=== PATIENT | male | born 1945 | race Hispanic/Latino ===

== ENCOUNTER 2024-04-06 08:05 | Emergency (ER) | payer MEDICARE ==
[~2024-04-06] VITALS: Ht 162.6 cm; Wt 61.2 kg
[2024-04-06 08:13] VITALS: BP 174/82; PULSE 63; RESP 16; TEMP 98; O2SAT 100
--- NOTE | 2024-04-06 09:19 | HMCIMG ---
CHEST 1VW REASON: fall COMPARISON: None FINDINGS: Single view of the chest was obtained. Lungs are clear. Heart size is normal. There is no pulmonary vascular congestion. Mediastinum and bony thorax appear unremarkable. IMPRESSION: 1. Normal single view chest x-ray.
--- NOTE | 2024-04-06 10:02 | ERN ---
ED Note History of Present Illness Stated Complaint: SHOULDER PAIN, RT NECK PAIN, POST FALL Chief Complaint: Mechanical Fall Time Seen by MD: 08:13 Dictation: 78-year-old male presents to the ED for evaluation post fall onset 1 hour ago. Patient reports right neck pain, bilateral shoulder pain, right arm pain, but denies any LOC, head injury or blood thinners. Patient [place] when he accidentally stepped in the hole causing him to fall forward. Allergies: Coded Allergies: No Known Drug Allergies (Unverified Allergy, Unknown, 04/06/24) Home Meds Active Scripts Cyclobenzaprine HCl (Cyclobenzaprine HCl) 5 Mg Tablet, 5 MG PO BID for 5 Days, #10 TAB Prov:ASHUTOSH ANDREWS MD 04/06/24 Past Medical History Past Medical History: Diabetes-Type II, Hypertension Surgical History: None Review of System Dictation Constitutional: Negative for fever,chills, and weight loss Eyes: Negative for injury, pain,redness, and discharge ENT: Negative for injury,pain or swelling Cardiovascular: Negative for chest pain, palpitations, and edema Respiratory: Negative for shortness of breath, cough, and wheezing, Abdomen/GI: Negative for abdominal pain, nausea, vomiting, diarrhea, and constipation Back: Negative for injury and pain : Negative for injury, bleeding and discharge MS/Extremity: Positive for neck pain, shoulder pain, arm pain Negative for injury and deformity Skin: Negative for rash, and discoloration Neuro: Negative for headache, weakness, numbness, tingling, and seizure Psych: Negative for suicide ideation, homicidal ideation, and hallucinations Initial Vital Sign VS Vital Signs Date Time Temp Pulse Resp B/P (MAP) Pulse Ox O2 Delivery O2 Flow Rate FiO2 04/06/24 08:07 98.1 63 16 174/82 100 Room Air 0 04/06/24 08:13 21 Physical Exam Dictation General: awake, alert, NAD Head/Face: Normocephalic, atraumatic Eyes: PERRL, EOMI, vision at baseline ENT: oral cavity clear, TMs clear, no signs of infection Neck: Trachea midline, supple, no nuchal rigidity Cardiovascular: RRR, normal S1/S2, No MRGs, no JVD Respiratory: CTAB, no respiratory distress, No rales or wheezes Abdomen: Soft, non-tender, non-distended, normal bowel sounds, no guarding or rebound. Skin: Warm, dry, normal turgor, no rash MS/Extremity: Pulses equal, no cyanosis, neurovascular intact, FROM Neuro: COAx4, GCS 15, strength 5/5, CN 2-12 intact, normal cerebellar exam, normal gait, Psych: Normal behavior, mood, and affect normal Results (Laboratory/Radiology) X-RAY Comment: REASON: fall ORDERING PHYSICIAN: ASHUTOSH ANDREWS MD PROCEDURE: CXR1VW - CHEST 1VW CHEST 1VW REASON: fall COMPARISON: None FINDINGS: Single view of the chest was obtained. Lungs are clear. Heart size is normal. There is no pulmonary vascular congestion. Mediastinum and bony thorax appear unremarkable. IMPRESSION: 1. Normal single view chest x-ray. DICTATED BY: PATRICK TARANGO MD DATE: 04/06/[address] Scan Comment: REASON: fall ORDERING PHYSICIAN: ASHUTOSH ANDREWS MD PROCEDURE: C SPIN WO - CT CERVICAL SPINE W/O CONTRAST CT CERVICAL SPINE W/O CONTRAST REASON: fall COMPARISON: None TECHNIQUE: Images are obtained from skull base to the upper thoracic spine in the axial plane. Sagittal and coronal reconstruction images were then performed. FINDINGS: There are normal appearing vertebral bodies. Alignment is unremarkable. There is mild interspace narrowing C5-6 and C6-7. There is mild degenerative change in the facets. There is no evidence of fracture or subluxation. Soft tissues appear normal as well. IMPRESSION: 1. Mild cervical degenerative change. 2. No acute finding, no fracture. CT was performed with one or more following dose reduction techniques: automated exposure control, adjustment of the mA and kv according to patient's size, or use of a iterative reconstruction technique. DICTATED BY: PATRICK TARANGO MD DATE: 04/06/24 1006 REASON: fall ORDERING PHYSICIAN: ASHUTOSH ANDREWS MD PROCEDURE: HEAD WO - CT HEAD/BRAIN W/O CONTRAST Exam: NONCONTRAST CT BRAIN REASON: fall. COMPARISON: None. TECHNIQUE: Images are obtained from vertex to the skull base. The exam was performed without IV contrast. FINDINGS: There are generous ventricles and sulci. There is decreased attenuation in the deep central white matter. These findings are consistent with atrophy. There are no acute appearing focal parenchymal lesions. There is no evidence of mass, intracranial hemorrhage or acute stroke. Posterior fossa and brainstem structures appear unremarkable. There are no abnormal fluid collections. Extra cranial soft tissues appear unremarkable as well. IMPRESSION: 1. Atrophy, mild, no acute finding. CT was performed with one or more following dose reduction techniques: automated exposure control, adjustment of the mA and kv according to patient's size, or use of a iterative reconstruction technique. DICTATED BY: PATRICK TARANGO MD DATE: 04/06/24 1004 ED Course ED Course Orders Procedure Category Date Status Time Ct Head/Brain W/O CT 04/06/24 Resulted Contrast 08:37 Ct Cervical Spine W/O CT 04/06/24 Resulted Contrast 08:37 Chest 1vw RAD 04/06/24 Resulted 08:37 Vital Signs Date Time Temp Pulse Resp B/P (MAP) Pulse Ox O2 Delivery O2 Flow Rate FiO2 04/06/24 08:13 98.1 63 16 174/82 100 Room Air* 0 21 04/06/24 08:07 98.1 63 16 174/82 100 Room Air 0 Medical Decision Making MDM MDM: Differential diagnosis: Fall, cervical sprain, contusion Risk of complication and/or morbidity or mortality of patient management: None Medications-Per medication reconciliation Need for hospitalization: Patient does not meet criteria for hospitalization. Need for emergency major/minor surgery: No There are no social concerns with this patient. Prescription drug management Prescriptions will include symptomatic care I independently interpreted the test that were performed, results were reviewed by me and considered findings on radiology if ordered. CT head and neck negative, no focal deficits normal neurologic exam, patient has cervical sprain with no acute findings on imaging or physical exam is stable for discharge. DX & DISP Disposition: Discharge Departure Impression: Primary Impression: Fall Additional Impression: Cervical sprain Condition: Stable Scripts Cyclobenzaprine HCl (Cyclobenzaprine HCl) 5 Mg Tablet 5 MG PO BID for 5 Days, #10 TAB Prov: ASHUTOSH ANDREWS MD 04/06/24 Referrals: EVELIO HYDE (PCP) ASHUTOSH ANDREWS MD Apr 06, 2024 10:02
--- NOTE | 2024-04-06 10:07 | HMCIMG ---
Exam: NONCONTRAST CT BRAIN REASON: fall. COMPARISON: None. TECHNIQUE: Images are obtained from vertex to the skull base. The exam was performed without IV contrast. FINDINGS: There are generous ventricles and sulci. There is decreased attenuation in the deep central white matter. These findings are consistent with atrophy. There are no acute appearing focal parenchymal lesions. There is no evidence of mass, intracranial hemorrhage or acute stroke. Posterior fossa and brainstem structures appear unremarkable. There are no abnormal fluid collections. Extra cranial soft tissues appear unremarkable as well. IMPRESSION: 1. Atrophy, mild, no acute finding. CT was performed with one or more following dose reduction techniques: automated exposure control, adjustment of the mA and kv according to patient's size, or use of a iterative reconstruction technique.
--- NOTE | 2024-04-06 10:09 | HMCIMG ---
CT CERVICAL SPINE W/O CONTRAST REASON: fall COMPARISON: None TECHNIQUE: Images are obtained from skull base to the upper thoracic spine in the axial plane. Sagittal and coronal reconstruction images were then performed. FINDINGS: There are normal appearing vertebral bodies. Alignment is unremarkable. There is mild interspace narrowing C5-6 and C6-7. There is mild degenerative change in the facets. There is no evidence of fracture or subluxation. Soft tissues appear normal as well. IMPRESSION: 1. Mild cervical degenerative change. 2. No acute finding, no fracture. CT was performed with one or more following dose reduction techniques: automated exposure control, adjustment of the mA and kv according to patient's size, or use of a iterative reconstruction technique.
[2024-04-06] MEDS ORDERED: CYCL5TAB3 PO (10:50)
--- NOTE | 2024-04-06 11:15 | NUR ---
ASSESSED FROM THE WAITING ROOM
== END 2024-04-06 11:31 | disposition home or self-care (01) ==
LOC: EDH 08:05
DX: S13.4XXA Sprain of ligaments of cervical spine, initial encounter (principal); E11.9 Type 2 diabetes mellitus without complications; I10 Essential (primary) hypertension; Z79.899 Other long term (current) drug therapy; W17.2XXA Fall into hole, initial encounter; Y93.53 Activity, golf; Y92.89 Other specified places as the place of occurrence of the external cause; Y99.8 Other external cause status
CPT/HCPCS: 70450; 71045; 72125; 99284